=== PATIENT | male | born 1985 | race American Indian/Alaskan Native ===

== ENCOUNTER 2021-08-06 21:21 | Emergency (ER) | payer MEDICAID ==
[2021-08-07] MEDS ORDERED: oxyCODONE /ACETAMINOPHEN 5-325MG TAB PO ONE ×2 (00:57→01:18)
--- NOTE | 2021-08-07 01:11 | Emergency Department Report ---
ED General Adult HPI - General Chief complaint: Extremity Injury, Lower Stated complaint: RT LEG SWOLLEN/GOUT Time Seen by Provider: 08/07/21 00:48 Source: patient Mode of arrival: Wheelchair Limitations: No Limitations - History of Present Illness Initial comments: 36-year-old male with a BMI with no history of cardiac valve presents emerged department complaining of having daily flareups off and on for the last 4 weeks clinical significantly worse on yesterday to his right knee and ankle foot region which was typical gout flareup present time, no fever, chills, sweats. No chest pain palpitation, no nausea no vomiting -: Gradual Radiation: non-radiation Severity scale (0 -10): 10 Consistency: constant Improves with: none Worsens with: none Associated Symptoms: denies other symptoms Treatments Prior to Arrival: none - Related Data Previous Rx's Medication Instructions Recorded Last Taken Type Colchicine 0.6 mg PO Q2HR #20 08/07/21 Unknown Rx Indomethacin [Indocin] 25 mg PO Q8H #21 cap 08/07/21 Unknown Rx traMADoL [Ultram] 50 mg PO Q6HR PRN #20 tablet 08/07/21 Unknown Rx Allergies Allergy/AdvReac Type Severity Reaction Status Date / Time No Known Allergies Allergy Verified 08/07/21 01:09 ED Review of Systems ROS: Stated complaint: RT LEG SWOLLEN/GOUT Other details as noted in HPI Comment: All other systems reviewed and negative ED Past Medical Hx - Medications Home Medications: Home Medications Medication Instructions Recorded Confirmed Last Taken Type Colchicine 0.6 mg PO Q2HR #20 08/07/21 Unknown Rx Indomethacin [Indocin] 25 mg PO Q8H #21 cap 08/07/21 Unknown Rx traMADoL [Ultram] 50 mg PO Q6HR PRN #20 tablet 08/07/21 Unknown Rx ED Physical Exam - General Limitations: No Limitations General appearance: alert, in no apparent distress - Head Head exam: Present: atraumatic, normocephalic - Eye Eye exam: Present: normal appearance - ENT ENT exam: Present: mucous membranes moist - Neck Neck exam: Present: normal inspection - Respiratory Respiratory exam: Present: normal lung sounds bilaterally. Absent: respiratory distress - Cardiovascular Cardiovascular Exam: Present: regular rate, normal rhythm. Absent: systolic murmur, diastolic murmur, rubs, gallop - GI/Abdominal GI/Abdominal exam: Present: soft, normal bowel sounds - Rectal Rectal exam: Present: deferred - Extremities Exam Extremities exam: Present: normal inspection, tenderness, normal capillary refill, joint swelling. Absent: calf tenderness - Expanded Lower Extremity Exam Right Knee exam: Present: tenderness, swelling Lower Leg exam: Present: tenderness Foot/Toe exam: Present: normal inspection Neuro vascular tendon exam: Present: no vascular compromise - Back Exam Back exam: Present: normal inspection - Neurological Exam Neurological exam: Present: alert, oriented X3, CN II-XII intact, normal gait - Psychiatric Psychiatric exam: Present: normal affect, normal mood - Skin Skin exam: Present: warm, dry, intact, normal color. Absent: rash ED Course Vital Signs 08/06/21 23:52 Temperature 99.0 F Pulse Rate 99 H Respiratory 20 Rate Blood Pressure 199/104 [Right] O2 Sat by Pulse 99 Oximetry Critical care attestation.: If time is entered above; I have spent that time in minutes in the direct care of this critically ill patient, excluding procedure time. ED Disposition Clinical Impression: Gout Disposition: 01 HOME / SELF CARE / HOMELESS Is pt being admited?: No Does the pt Need Aspirin: No Condition: Stable Instructions: Low-Purine Eating Plan, Calcium Pyrophosphate Deposition, Uric Acid Nephropathy Prescriptions: Colchicine 0.6 mg PO Q2HR #20 Indomethacin [Indocin] 25 mg PO Q8H #21 cap traMADoL [Ultram] 50 mg PO Q6HR PRN #20 tablet PRN Reason: Pain Referrals: [facility] [Provider Group] - 3-5 Days
[2021-08-07 02:22] VITALS: BP 164/103
== END 2021-08-07 01:50 | disposition home or self-care (01) ==
LOC: ED 21:21
DX: M10.9 Gout, unspecified (principal)
CPT/HCPCS: 99282